=== PATIENT | male | born 1955 | race Caucasian/White ===

== ENCOUNTER 2023-03-11 07:04 | Day surgery (SDC) | payer MEDICARE ==
[2023-03-06 10:49] VITALS: BMI 25.1
[2023-03-11] MEDS ORDERED: LIDOCAINE HCL/PF 2% SDV 5ML VIAL ONE (07:37)
[2023-03-11] MEDS ORDERED: PROPOFOL 120 ML ONE (07:38)
[2023-03-11 09:46] VITALS: RESP 19
[2023-03-11 09:57] VITALS: BP 130/70; PULSE 81; TEMP 97.7
== END 2023-03-11 09:57 | disposition home or self-care (01) ==
LOC: FASU-ENDO 07:04
PROVIDERS: ATTEND Internal Medicine Gastroenterology
PROC: 0DJD8ZZ Inspection of Lower Intestinal Tract, Via Natural or Artificial Opening Endoscopic (ICD-10-PCS; principal; 2023-03-11 08:47)
DX: Z12.11 Encounter for screening for malignant neoplasm of colon (principal); K57.30 Diverticulosis of large intestine without perforation or abscess without bleeding; K64.1 Second degree hemorrhoids; K64.5 Perianal venous thrombosis